=== PATIENT | female | born 1965 | race Caucasian/White ===

== ENCOUNTER 2018-06-26 08:45 | Day surgery (SDC) | payer BC ==
[~2018-06-26 08:45] MED LIST: ACETAMINOPHEN 1,000 MG/100 ML BTL IV ONE; CEFAZOLIN 2 Gram 2 GM/50 ML BAG IVPB ONE
[2018-06-26] MEDS ORDERED: FENTANYL PF 100MCG/2ML VIAL IV ONE (08:46)
[2018-06-26] MEDS ORDERED: DEXAMETHASONE 4 MG/ML 1ML VIAL IVP ONE ×2 (08:46)
[2018-06-26] MEDS ORDERED: BUPIVACAINE 0.5% W/EPI MPF 30 ML VIAL IVP ONE (08:46)
[2018-06-26] MEDS ORDERED: BUPIVACAINE 0.5% (5MG/ML) PF 30ML VIAL IVP ONE (08:46)
[2018-06-26] MEDS ORDERED: METHYLPREDNISOLONE 40MG/VIAL IM ONE (08:46)
[2018-06-26] MEDS ORDERED: PROPOFOL 10 MG/ML VIAL IV ONE (08:46)
[2018-06-26] MEDS ORDERED: BUPIVACAINE LIPOSOME/PF 133MG/10ML VIAL IV ONE (08:46)
[2018-06-26] MEDS ORDERED: ONDANSETRON HCL IV 4 MG/2 ML VIAL IVP ONE (08:46)
[2018-06-26] MEDS ORDERED: ALPRAZOLAM 1 MG TAB PO ONE (08:46)
[2018-06-26] MEDS ORDERED: LIDOCAINE 2% MDV (20MG/ML) 20ML VIAL IV ONE (08:46)
[2018-06-26] MEDS ORDERED: EPHEDRINE SULFATE 50 MG/ML ML IV ONE (08:46)
[2018-06-26] MEDS ORDERED: SEVOFLURANE 250 ML INH ONE (08:46)
[2018-06-26] MEDS ORDERED: MIDAZOLAM HCL 2MG/2ML VIAL IV ONE (08:46)
[2018-06-26] MEDS ORDERED: MORPHINE SULFATE PF 10MG/10ML VIAL IV ONE (08:46)
--- NOTE | 2018-06-27 09:00 | Operative Note ---
DATE OF SURGERY: 06/26/2018 Surgeon: Rony Torres MD PREOPERATIVE DIAGNOSIS: Adhesive capsulitis with impingement left shoulder. POSTOPERATIVE DIAGNOSES: 1. Chronically torn left rotator cuff tendon. 2. Diffuse synovitis left shoulder. 3. Adhesive capsulitis left shoulder. 4. Severe subacromial impingement. 5. Arthrosis left distal clavicle. OPERATION: 1. Repair of a chronically torn rotator cuff tear on the left. 2. Left shoulder arthroscopy with complete synovectomy. 3. Left shoulder open acromioplasty, CA ligament resection with subacromial bursectomy. 4. Left shoulder distal clavicle resection. 5. Left shoulder manipulation under anesthesia. Anesthesia: General. PREPARATION: Chloraprep. INDIVIDUAL CONSIDERATIONS: None. PROCEDURE: The patient was taken to the operating room and placed supine on the operating room table. She had a successful induction with general anesthetic. She was then placed in a semi-seated beach chair position. Examination of the shoulder showed adhesive capsulitis at about 20 to 30 degrees of abduction. I was able to easily manipulate past this and get her into full abduction and rotation. Her shoulder was then prepped and draped in the usual fashion. The patient had a posterior portal identified for arthroscopy. The skin was infiltrated with 0.5% Marcaine with epinephrine prior. An 18 gauge spinal needle is then placed in the joint and the joint was inflated with normal saline with a 60 mL syringe. A stab wound was made and a blunt tipped trocar through the scope was placed in the joint and the joint was inflated with normal saline. Within the joint, there was diffuse synovitis and some blood from manipulation. The synovium was debrided. The glenohumeral joint was normal. The rotator cuff underneath looked normal. The subscap tendon was normal and the labrum was intact. After irrigation, the portals were closed with negrito. The patient had an anterior approach to the subacromial space and distal clavicle. The skin was again infiltrated with 0.5% Marcaine with epinephrine prior. Sharp dissection carried down through the skin and subcutaneous tissues. Small veins were coagulated with the Bovie. An anterior deltoid interval was developed. Care was taken not to split the deltoid more than 4 cm distal to the anterior tip of the acromion to prevent injury to the axillary nerve. Once in the subacromial space, she had a very thick bursa, large spurs anteriorly in the acromion and large spurs at the acromioclavicular joint. The deltoid was then taken subperiosteally off the anterior aspect of the acromion, over the top of the intact CA ligament and off the anterior aspect of the degenerated distal clavicle. The CA ligament was resected with the Bovie. The distal clavicle was resected with an oscillating saw, taking about 1 cm. The patient had downsloping acromion with spurs. An anterior acromioplasty was performed, taking about 6 or 7 mm, tapering towards posterior medially to include the spurs of the AC joint. The undersurface was smoothed with a rasp. Very thick bursa was debrided out, some areas there were calcifications within in. I now had a good look at the rotator cuff, but the supraspinatus to the insertion, there was about 1 cm tear hanging on just by a thread. This is debrided back to good bleeding tendon. I made a little trough and burred the bone and then reattached it with retention sutures of 1 Ethibond going directly through the base of the trough and then suturing distally, affecting anatomic repair. I placed the shoulder through a full range of motion to ensure no further impingement. At this point, after irrigation, I placed a 22 gauge spinal needle within the joint. The deltoid was then reattached to the remaining acromion with multiple interrupted 2 Vicryl, going directly to the bony acromion. The periosteal cup and distal clavicle was closed with a running 2 Vicryl. The anterior deltoid interval was closed with running 1 Vicryl. The subq was closed with 2-0 + Vicryl, the skin was closed with running 3-0 Stratafix. An 18 gauge spinal needle was placed in the subacromial space. At this point, I mixed 40 mg of Depo-Medrol and 5 mg of 0.5% Marcaine with epinephrine and injected it through the 22 gauge spinal needle which I had previously placed in the joint. The 18 gauge spinal needle I injected with 10 mL of 0.5% Marcaine with epinephrine into the subacromial space. A sterile, bulky compressive dressing and a sling were applied. The patient tolerated the procedures well. The needle and sponge counts were correct. Estimated blood loss was minimal. She was taken back to recovery in good condition. There were no complications. [facility]
== END 2018-06-26 13:25 | disposition home or self-care (01) ==
LOC: SUR 08:45
PROVIDERS: ATTEND Orthopaedic Surgery
DX: M75.102 Unspecified rotator cuff tear or rupture of left shoulder, not specified as traumatic (principal); M75.42 Impingement syndrome of left shoulder; M65.812 Other synovitis and tenosynovitis, left shoulder; M19.012 Primary osteoarthritis, left shoulder; I10 Essential (primary) hypertension
CPT/HCPCS: 23410; 23415; 29821; 23120; 23700; 01610; 64415; J2405; J3010; J0690; C9290; J1030